=== PATIENT | male | born 1980 | race Caucasian/White ===

== ENCOUNTER 2018-09-11 14:59 | Emergency (ER) | payer OTHER ==
[~2018-09-11] VITALS: Ht 185.4 cm; Wt 136.4 kg
[2018-09-11 15:01] VITALS: TEMP 98
[2018-09-11] MEDS ORDERED: BACTRIM DS 8001 TAB PO (15:35)
[2018-09-11 15:51] VITALS: BP 147/93; PULSE 88
== END 2018-09-11 15:53 | disposition home or self-care (01) ==
LOC: COL.ER 14:59 → EDSEX 14:59 → COL.ER 15:53
DX: L02.31 Cutaneous abscess of buttock (principal); F17.210 Nicotine dependence, cigarettes, uncomplicated